=== PATIENT | female | born 1935 | race Hispanic/Latino ===

== ENCOUNTER 2022-07-07 01:47 | Inpatient (IN) | payer MEDICARE ==
[~2022-07-07] VITALS: Ht 149.9 cm; Wt 39.2 kg
[2022-07-07] MEDS ORDERED: ONDANSETRON 4MG INJ ONE (01:51)
[2022-07-07 02:19] LABS: BASOPHILS % (AUTO) 0.3 % (0.0-5.0); EOSINOPHILS % (AUTO) 0.9 % (0.0-8.0); HEMATOCRIT 37.1 % (36-48); LYMPHOCYTES % (AUTO) 16.4 % (21.0-51.0); MEAN CORPUSCULAR HEMOGLOBIN 29.2 pg (27.0-33.0); MEAN CORPUSCULAR HGB CONC 34.2 g/dL (32.0-36.0); MEAN CORPUSCULAR VOLUME 85.3 fL (79-99); MONOCYTES % (AUTO) 5.3 % (3.0-13.0); NEUTROPHILS % (AUTO) 76.5 % (40.0-77.0); PLATELET COUNT (AUTO) 275 K/uL (130-400); RED BLOOD CELL COUNT(AUTO) 4.35 MIL/uL (4.00-5.50); RED CELL DISTRIBUTION WIDTH 13.8 % (11.0-15.5); WHITE BLOOD COUNT (AUTO) 17.5 K/uL (4.8-10.8)
[2022-07-07] MEDS ORDERED: 0.9%NACL 1000ML 1,000 ML IV ONE (02:30)
[2022-07-07 02:32] LABS: APPEARANCE,URINE CLOUDY (CLEAR); BILIRUBIN,URINE NEGATIVE (NEGATIVE); COLOR,URINE YELLOW (YELLOW); GLUCOSE, URINE (UA) 30 mg/dL (NEGATIVE); KETONES,URINE NEGATIVE (NEGATIVE); LEUKOCYTE ESTERASE ,URINE NEGATIVE Leu/uL (NEGATIVE); NITRATE,URINE NEGATIVE (NEGATIVE); OCCULT BLOOD,URINE NEGATIVE (NEGATIVE); PH,URINE 5.5 (5.0-8.0); PROTEIN,URINE 30 mg/dL (NEGATIVE); UROBILINOGEN,URINE 0.2 mg/dL (0.2-1.0)
[2022-07-07 02:36] LABS: ALBUMIN 3.6 g/dL (3.5-5.0); CREATININE 1.1 mg/dL (0.5-1.5); TOTAL PROTEIN, SERUM 7.5 g/dL (6.0-8.3)
[2022-07-07 02:37] LABS: BACTERIA,URINE RARE /HPF (None Seen); MUCUS,URINE RARE LPF (None Seen); SQUAMOUS EPITHELIAL CELL,UR RARE /HPF (0-2)
[2022-07-07 02:37] LABS: POTASSIUM 2.9 mmol/L (3.5-5.1)
[2022-07-07] MEDS ORDERED: IOHEXOL 350 MG/ML 100ML INFUS..BTL IV ONE (02:52)
[2022-07-07] MEDS ORDERED: KCL 20 MEQ ERTAB PO ONE (03:00)
[2022-07-07] MEDS ORDERED: POTASSIUM CHLORIDE 10MEQ/100ML 100 ML IV SCH (03:30)
[2022-07-07] MEDS: 0.9%NACL 1000ML 1,000 ML IV SCH ×2 (10:08→20:11)
[2022-07-07] MEDS ORDERED: HYDRALAZINE 20MG/ML VIAL IV PRN (14:00)
[2022-07-07] MEDS ORDERED: POTASSIUM CHLORIDE 20MEQ/100ML 100 ML IV PRN (14:00)
[2022-07-07] MEDS ORDERED: ACETAMINOPHEN 325 MG TAB PO PRN (14:00)
[2022-07-07] MEDS ORDERED: LIDOCAINE HCL-MPF 1% 2ML VIAL IV PRN (14:00)
[2022-07-07] MEDS ORDERED: GLUCAGON 1MG KIT 1 MG ML IM PRN (14:00)
[2022-07-07] MEDS ORDERED: ONDANSETRON 4MG INJ IVP PRN (14:00)
[2022-07-07] MEDS ORDERED: DEXTROSE 50%-WATER 50 ML DISP.SYRIN IV PRN (14:00)
[2022-07-07] MEDS ORDERED: LEVOFLOXACIN 500 MG/D5W 100 ML 100 ML IV SCH (14:30)
[2022-07-07] MEDS: INSULIN HUMULIN R 100 UNIT/ML 3ML SQ SCH ×2 (16:28→20:53)
[2022-07-07] MEDS: FAMOTIDINE 20MG VIAL IV SCH (20:59)
[2022-07-07 22:00] VITALS: BP 177/84
[2022-07-07 22:01] LABS: CREATININE 0.6 mg/dL (0.5-1.5); POTASSIUM 3.6 mmol/L (3.5-5.1)
[2022-07-07 22:05] LABS: ALBUMIN 2.9 g/dL (3.5-5.0); TOTAL PROTEIN, SERUM 6.7 g/dL (6.0-8.3)
[2022-07-07] MEDS ORDERED: AMLO-258 PO (23:22)
[2022-07-07] MEDS ORDERED: PRAV10TA39 PO (23:22)
[2022-07-07] MEDS ORDERED: MEGE40TA33 PO (23:22)
[2022-07-07] MEDS ORDERED: SERT-438 PO (23:22)
[2022-07-07] MEDS ORDERED: DONE5TAB33 PO (23:22)
[2022-07-08 03:50] VITALS: BP 148/62
[2022-07-08 05:08] LABS: HEMATOCRIT 33.1 % (36-48); MEAN CORPUSCULAR HEMOGLOBIN 29.2 pg (27.0-33.0); MEAN CORPUSCULAR HGB CONC 34.4 g/dL (32.0-36.0); MEAN CORPUSCULAR VOLUME 84.7 fL (79-99); RED BLOOD CELL COUNT(AUTO) 3.91 MIL/uL (4.00-5.50); WHITE BLOOD COUNT (AUTO) 15.3 K/uL (4.8-10.8)
[2022-07-08 05:24] LABS: ALBUMIN 2.9 g/dL (3.5-5.0); CREATININE 0.6 mg/dL (0.5-1.5); POTASSIUM 3.5 mmol/L (3.5-5.1); TOTAL PROTEIN, SERUM 6.7 g/dL (6.0-8.3)
[2022-07-08 07:09] VITALS: BP 139/62
[2022-07-08] MEDS: INSULIN HUMULIN R 100 UNIT/ML 3ML SQ SCH ×4 (07:30→21:00)
[2022-07-08] MEDS: ENOXAPARIN SODIUM 30 MG/0.3 ML SQ SCH (09:19)
[2022-07-08] MEDS: 0.9%NACL 1000ML 1,000 ML IV SCH (09:34)
[2022-07-08 12:09] VITALS: BP 112/60
[2022-07-08] MEDS ORDERED: LEVOFLOXACIN 250 MG/D5W 50ML 50 ML IVPB SCH (14:00)
[2022-07-08 16:06] VITALS: BP 141/61
[2022-07-08 19:42] VITALS: BP 123/61
[2022-07-08] MEDS: FAMOTIDINE 20MG VIAL IV SCH (21:39)
[2022-07-09 00:04] VITALS: BP 119/63
[2022-07-09] MEDS: 0.9%NACL 1000ML 1,000 ML IV SCH ×2 (02:00→05:52)
[2022-07-09 03:46] VITALS: BP 141/74
[2022-07-09 05:47] LABS: HEMATOCRIT 28.3 % (36-48); MEAN CORPUSCULAR HEMOGLOBIN 29.4 pg (27.0-33.0); MEAN CORPUSCULAR HGB CONC 34.6 g/dL (32.0-36.0); RED BLOOD CELL COUNT(AUTO) 3.33 MIL/uL (4.00-5.50); RED CELL DISTRIBUTION WIDTH 14.1 % (11.0-15.5); WHITE BLOOD COUNT (AUTO) 13.5 K/uL (4.8-10.8)
[2022-07-09 06:02] LABS: CREATININE 0.5 mg/dL (0.5-1.5)
[2022-07-09 06:03] LABS: POTASSIUM 2.9 mmol/L (3.5-5.1)
[2022-07-09] MEDS: INSULIN HUMULIN R 100 UNIT/ML 3ML SQ SCH (06:43)
[2022-07-09 08:00] VITALS: BP 172/87
[2022-07-09] MEDS ORDERED: LEVO-70 PO (08:37)
[2022-07-09] MEDS: ENOXAPARIN SODIUM 30 MG/0.3 ML SQ SCH (08:51)
== END 2022-07-09 11:15 | disposition home or self-care (01) | DRG 388 ==
LOC: EDH 01:47 → EDHIP 09:54 → 3AH 20:24
PROVIDERS: ADMIT Hospitalist; ATTEND Hospitalist
DX: K56.609 Unspecified intestinal obstruction, unspecified as to partial versus complete obstruction (principal); U07.1 COVID-19; E87.1 Hypo-osmolality and hyponatremia; N39.0 Urinary tract infection, site not specified; E87.6 Hypokalemia; E11.65 Type 2 diabetes mellitus with hyperglycemia; E78.5 Hyperlipidemia, unspecified; I10 Essential (primary) hypertension
CPT/HCPCS: 36415; 71045; 74018; 74177; 80048; 80053; 81001; 82948; 84484; 85025; 85027; 87088; 87635; 87804; 93005; C9803; G0378; J1650; J1956; J2405; J3480; J3490; J7030; Q9967

== ENCOUNTER 2023-11-19 14:24 | Inpatient (IN) | payer MEDICARE ==
[~2023-11-19] VITALS: Ht 152.4 cm; Wt 41.7 kg
[~2023-11-19 14:24] MED LIST: LACT10SO9 PO; POLY17PO4 PO
[2023-11-19 15:29] LABS: BASOPHILS # (AUTO) 0.06 K/uL (0.00-0.20); BASOPHILS % (AUTO) 0.4 % (0.0-5.0); EOSINOPHILS # (AUTO) 0.04 K/uL (0.00-0.70); EOSINOPHILS % (AUTO) 0.3 % (0.0-8.0); HEMATOCRIT 40.9 % (36-48); MEAN CORPUSCULAR HEMOGLOBIN 28.8 pg (27.0-33.0); MEAN CORPUSCULAR HGB CONC 33.7 g/dL (32.0-36.0); MEAN CORPUSCULAR VOLUME 85.4 fL (79-99); MONOCYTES # (AUTO) 0.7 K/uL (0.1-1.0); MONOCYTES % (AUTO) 5.1 % (3.0-13.0); NEUTROPHILS # (AUTO) 12.2 K/uL (1.8-7.7); NEUTROPHILS % (AUTO) 86.5 % (40.0-77.0); PLATELET COUNT (AUTO) 258 K/uL (130-400); RED BLOOD CELL COUNT(AUTO) 4.79 MIL/uL (4.00-5.50); WHITE BLOOD COUNT (AUTO) 14.1 K/uL (4.8-10.8)
[2023-11-19] MEDS: ONDANSETRON 4MG INJ IVP ONE (15:30)
[2023-11-19] MEDS: LACTATED RINGERS 1000ML 1,000 ML IV ONE (15:30)
[2023-11-19 16:12] LABS: CREATININE 0.7 mg/dL (0.5-1.5); POTASSIUM 4.2 mmol/L (3.5-5.1)
[2023-11-19 16:16] LABS: BILIRUBIN,TOTAL 0.5 mg/dL (0.2-1.0); TOTAL PROTEIN, SERUM 6.8 g/dL (6.0-8.3)
[2023-11-19 16:58] LABS: APPEARANCE,URINE CLEAR (CLEAR); BILIRUBIN,URINE NEGATIVE (NEGATIVE); COLOR,URINE YELLOW (YELLOW); GLUCOSE, URINE (UA) NEGATIVE (NEGATIVE); KETONES,URINE NEGATIVE (NEGATIVE); LEUKOCYTE ESTERASE ,URINE NEGATIVE Leu/uL (NEGATIVE); NITRATE,URINE NEGATIVE (NEGATIVE); OCCULT BLOOD,URINE NEGATIVE (NEGATIVE); PROTEIN,URINE NEGATIVE (NEGATIVE); UROBILINOGEN,URINE 0.2 mg/dL (0.2-1.0)
[2023-11-19] MEDS ORDERED: IOHEXOL-350 75 ML VIAL IV ONE (17:00)
[2023-11-19 17:16] LABS: ADD UA MICROSCOPIC NO
[2023-11-19] MEDS: LEVOFLOXACIN 750 MG/D5W 150ML BAG IV ONE (18:07)
[2023-11-19] MEDS ORDERED: POTASSIUM CHLORIDE 10% ELIXIR 20 MEQ/15 ML UDCUP PO PRN (20:30)
[2023-11-19] MEDS ORDERED: POTASSIUM CHLORIDE 20MEQ/100ML 100 ML IV PRN (20:30)
[2023-11-19] MEDS ORDERED: DEXTROSE 50%-WATER 50 ML DISP.SYRIN IV PRN (20:30)
[2023-11-19] MEDS ORDERED: KCL 20 MEQ ERTAB PO PRN (20:30)
[2023-11-19] MEDS ORDERED: GLUCAGON 1MG KIT 1 MG ML IM PRN (20:30)
[2023-11-19] MEDS ORDERED: LEVOFLOXACIN 500 MG/D5W 100 ML 100 ML IV ONE (20:30)
[2023-11-19] MEDS ORDERED: ONDANSETRON 4MG INJ IV PRN (20:30)
[2023-11-19] MEDS ORDERED: MAGNESIUM 2GM PREMIX 50ML 50 ML IV PRN (20:30)
[2023-11-19] MEDS ORDERED: METRONIDAZOLE 500MG/100ML BAG 100 ML IVPB SCH (22:00)
[2023-11-19] MEDS: METRONIDAZOLE 500MG/100ML BAG 100 ML IVPB SCH (22:09)
[2023-11-19] MEDS: FAMOTIDINE 20MG VIAL IV SCH (22:09)
[2023-11-19 22:35] VITALS: BP 154/79; PULSE 98; RESP 16
[2023-11-19 22:40] VITALS: O2SAT 98
[2023-11-19] MEDS: INSULIN HUMULIN R 100 UNIT/ML 3ML SQ SCH (23:49)
[2023-11-20 04:00] VITALS: BP 159/77; PULSE 98; RESP 16
[2023-11-20] MEDS: 0.9%NACL 1000ML 1,000 ML IV SCH (04:06)
[2023-11-20 05:09] LABS: BASOPHILS # (AUTO) 0.04 K/uL (0.00-0.20); BASOPHILS % (AUTO) 0.4 % (0.0-5.0); EOSINOPHILS # (AUTO) 0.05 K/uL (0.00-0.70); EOSINOPHILS % (AUTO) 0.5 % (0.0-8.0); HEMATOCRIT 38.7 % (36-48); IMMATURE GRANULOCYTE ABSOLUTE 0.04 K/uL (0-1); LYMPHOCYTES # (AUTO) 1.1 K/uL (1.0-4.8); LYMPHOCYTES % (AUTO) 12.4 % (21.0-51.0); MEAN CORPUSCULAR HEMOGLOBIN 28.7 pg (27.0-33.0); MEAN CORPUSCULAR HGB CONC 33.3 g/dL (32.0-36.0); MEAN CORPUSCULAR VOLUME 86.2 fL (79-99); MONOCYTES # (AUTO) 0.8 K/uL (0.1-1.0); MONOCYTES % (AUTO) 8.4 % (3.0-13.0); NEUTROPHILS # (AUTO) 7.1 K/uL (1.8-7.7); NEUTROPHILS % (AUTO) 77.9 % (40.0-77.0); PLATELET COUNT (AUTO) 249 K/uL (130-400); RED BLOOD CELL COUNT(AUTO) 4.49 MIL/uL (4.00-5.50); RED CELL DISTRIBUTION WIDTH 13.6 % (11.0-15.5); WHITE BLOOD COUNT (AUTO) 9.2 K/uL (4.8-10.8)
[2023-11-20 05:31] LABS: ALBUMIN 3.1 g/dL (3.5-5.0); BILIRUBIN,TOTAL 0.8 mg/dL (0.2-1.0); CREATININE 0.7 mg/dL (0.5-1.5); MAGNESIUM 1.9 mg/dL (1.80-2.40); POTASSIUM 4.4 mmol/L (3.5-5.1); TOTAL PROTEIN, SERUM 7.3 g/dL (6.0-8.3)
[2023-11-20 08:00] VITALS: BP 153/66; PULSE 78; RESP 16; O2SAT 99
[2023-11-20 11:00] VITALS: BP 180/78; PULSE 72; RESP 16
[2023-11-20] MEDS: HYDRALAZINE 20MG/ML VIAL IV PRN (11:22)
[2023-11-20 16:00] VITALS: BP 150/74; PULSE 85; RESP 16
[2023-11-20] MEDS: LEVOFLOXACIN 250 MG/D5W 50ML 50 ML IVPB SCH (17:49)
[2023-11-20 20:00] VITALS: O2SAT 99
[2023-11-20] MEDS: INSULIN HUMULIN R 100 UNIT/ML 3ML SQ SCH (20:52)
[2023-11-20 23:55] VITALS: BP 160/72; PULSE 69; RESP 17
[2023-11-21 04:00] VITALS: BP 180/71; PULSE 69; RESP 17
[2023-11-21 09:00] VITALS: O2SAT 99
[2023-11-21 12:09] VITALS: BP 150/76; PULSE 81; RESP 19
[2023-11-21] MEDS: LACTULOSE 20 GM/30 ML UDCUP PO ONE (13:26)
[2023-11-21 17:45] VITALS: BP 145/77; PULSE 94; RESP 19
[2023-11-21] MEDS ORDERED: LEVOFLOXACIN 750 MG/D5W 150ML BAG IV SCH (18:00)
== END 2023-11-21 19:00 | disposition home or self-care (01) | DRG 389 ==
LOC: EDH 14:24 → EDHIP 20:16 → 3DH 22:08
PROVIDERS: ADMIT Family Medicine; ATTEND Family Medicine
DX: K56.699 Other intestinal obstruction unspecified as to partial versus complete obstruction (principal); E44.0 Moderate protein-calorie malnutrition; Z68.1 Body mass index [BMI] 19.9 or less, adult; E11.9 Type 2 diabetes mellitus without complications; E86.0 Dehydration; K42.9 Umbilical hernia without obstruction or gangrene; K57.30 Diverticulosis of large intestine without perforation or abscess without bleeding; K80.20 Calculus of gallbladder without cholecystitis without obstruction; D72.829 Elevated white blood cell count, unspecified; E78.5 Hyperlipidemia, unspecified; I10 Essential (primary) hypertension; Z82.49 Family history of ischemic heart disease and other diseases of the circulatory system; Z88.0 Allergy status to penicillin; Z83.3 Family history of diabetes mellitus; Z79.84 Long term (current) use of oral hypoglycemic drugs
CPT/HCPCS: 36415; 74177; 80053; 81003; 82948; 83605; 83690; 83735; 84145; 85025; 87040; G0378; J0360; J1956; J2405; J3490; J7120; Q9967

== ENCOUNTER 2025-03-28 22:21 | Emergency (ER) | payer MEDICARE, MEDICAID ==
[~2025-03-28] VITALS: Ht 142.2 cm; Wt 35.8 kg
[~2025-03-28 22:21] MED LIST changes: +AMLO5TAB4 PO; -LACT10SO9 PO; +LOSA-418 PO; +METF-526 PO; +PRAV10TA37 PO
--- NOTE | 2025-03-28 23:24 | ERN ---
ED Note History of Present Illness Stated Complaint: FALL Chief Complaint: Mechanical Fall Time Seen by MD: 21:32 Dictation: This is an 89-year-old female who was brought into the emergency room for evaluation of a fall. Apparently patient was attempting to use the restroom and at 9:45 p.m. he was going to sit on the toilet but slid off from the side hitting the right side of the head and wrist. No loss of consciousness and per son she did not actually fall on the floor. Shower curtain cushioned her head. Patient is not on any blood thinners. No history of any blurred vision diplopia facial asymmetry motor weakness or seizure activity. Temperature 98.7 pulse 83 respirations 16 blood pressure 215/87 with a pulse oximetry of 97% on room air Chronic medical problems include diabetes mellitus hypertension and hypercholesterolemia. Allergies: Coded Allergies: Penicillins (Verified Allergy, 12/13/12) Home Meds Active Scripts Losartan Potassium (Cozaar) 50 Mg Tablet, 50 MG PO BID, #60 TAB 0 Refills Prov:DONNY JOHNSON MD 01/15/25 Amlodipine Besylate (Norvasc 5Mg Tab) 5 Mg Tablet, 10 MG PO DAILY PRN for IF SBP GREATER THAN 170, #60 TAB Prov:ALEX BOLIVAR ACID CONDITIONING WORKER 01/07/25 Reported Medications Polyethylene Glycol 3350 (Miralax) 17 Gram Powd.pack, 1 PACKET PO DAILY for constipation for 2 Days, #2 PACKET 0 Refills dissolve in water 01/06/25 Pravastatin Sodium (Pravastatin Sodium) 10 Mg Tablet, 1 TAB PO HS for 30 Days, #30 TAB 0 Refills 01/06/25 Metformin HCl (Metformin HCl ER) 500 Mg Tab.er.24, 1 TAB PO DAILY PRN for OTHER [SEE ORDER COMMENTS] for 30 Days, #30 TAB 0 Refills BLOOD GLUCOSE 130 01/06/25 Past Medical History Past Medical History: Diabetes-Type II, High Cholesterol, Hypertension, Other Additional Past Medical Hx: POOR HISTORIAN/CONFUSED Surgical History: Cholecystectomy, Unknown Family History: Negative Social History: Negative History: Not Applicable RN Note Reviewed/Agreed w/PFSH: Yes Review of System Dictation Constitutional: Negative for fever,chills, and weight loss positive for fall with a injury to the right side of the head Eyes: Negative for injury, pain,redness, and discharge ENT: Negative for injury,pain or swelling Cardiovascular: Negative for chest pain, palpitations, and edema Respiratory: Negative for shortness of breath, cough, and wheezing, Abdomen/GI: Negative for abdominal pain, nausea, vomiting, diarrhea, and constipation Back: Negative for injury and pain : Negative for injury, bleeding and discharge MS/Extremity: Negative for injury and deformity Skin: Negative for rash, and discoloration tear on the right wrist and pain Neuro: Negative for headache, weakness, numbness, tingling, and seizure Psych: Negative for suicide ideation, homicidal ideation, and hallucinations Initial Vital Sign VS Vital Signs Date Time Temp Pulse Resp B/P (MAP) Pulse Ox O2 Delivery O2 Flow Rate FiO2 03/28/25 22:22 98.8 83 16 215/87 97 03/28/25 23:09 Room Air* 0 21 Physical Exam Dictation General: awake, alert, NAD frail elderly female who is emaciated with severe temporal wasting Head/Face: Normocephalic, atraumatic, constant chewing movements Eyes: PERRL, EOMI, vision at baseline ENT: oral cavity clear, TMs clear, no signs of infection Neck: Trachea midline, supple, no nuchal rigidity Cardiovascular: RRR, normal S1/S2, No MRGs, no JVD Respiratory: CTAB, no respiratory distress, No rales or wheezes Abdomen: Soft, non-tender, non-distended, normal bowel sounds, no guarding or rebound. Skin: Warm, dry, normal turgor, no rash small skin tear on the right wrist MS/Extremity: Pulses equal, no cyanosis, neurovascular intact, FROM Neuro: COAx4, GCS 15, strength 5/5, CN 2-12 intact, normal cerebellar exam, Psych: Normal behavior, mood, and affect normal Extremities-trace edema without any palpable cords, Homans sign is negative Results (Laboratory/Radiology) Laboratory/Radiology Laboratory Tests Test 03/28/25 23:40 White Blood Count 7.7 K/uL (4.8-10.8) Red Blood Count 3.71 MIL/uL (4.00-5.50) L Hemoglobin 11.1 g/dL (12.0-16.0) L Hematocrit 33.3 % (36-48) L Mean Corpuscular Volume 89.8 fL (79-99) Mean Corpuscular Hemoglobin 29.9 pg (27.0-33.0) Mean Corpuscular Hemoglobin Concent 33.3 g/dL (32.0-36.0) Red Cell Distribution Width 14.8 % (11.0-15.5) Platelet Count 285 K/uL (130-400) Mean Platelet Volume 11.2 fL (7.5-10.5) H Immature Granulocyte % (Auto) 0.5 % (0-1) Neutrophils (%) (Auto) 61.8 % (40.0-77.0) Lymphocytes (%) (Auto) 27.1 % (21.0-51.0) Monocytes (%) (Auto) 8.7 % (3.0-13.0) Eosinophils (%) (Auto) 1.2 % (0.0-8.0) Basophils (%) (Auto) 0.7 % (0.0-5.0) Neutrophils # (Auto) 4.7 K/uL (1.8-7.7) Lymphocytes # (Auto) 2.1 K/uL (1.0-4.8) Monocytes # (Auto) 0.7 K/uL (0.1-1.0) Eosinophils # (Auto) 0.09 K/uL (0.00-0.70) Basophils # (Auto) 0.05 K/uL (0.00-0.20) Absolute Immature Granulocyte (auto 0.04 K/uL (0-1) Nucleated Red Blood Cells 0.0 % (0.0-0.19) Sodium Level 139 mmol/L (136-145) Potassium Level 4.4 mmol/L (3.5-5.1) Chloride Level 103 mmol/L (101-111) Carbon Dioxide Level 31 mmol/L (21-32) Blood Urea Nitrogen 24 mg/dL (7-18) H Creatinine 0.6 mg/dL (0.5-1.0) Glomerular Filtration Rate Calc 87 mL/min (>90) Random Glucose 105 mg/dL (70-105) Total Calcium 9.0 mg/dL (8.5-10.1) Total Creatine Kinase 32 U/L (21-232) # Troponin I High Sensitivity 27.8 ng/L (4-50) Labs Reviewed?: Yes ED Course ED Course Orders Procedure Category Date Status Time Cardiac Panel LAB 6/12/25 Complete 23:19 Cbc With Differential LAB 03/28/25 Complete 23:19 Basic Metabolic Panel LAB 03/28/25 Complete 23:19 Urinalysis Profile LAB 03/28/25 Logged 23:19 Ct Head/Brain W/O CT 03/28/25 Taken Contrast 23:19 Wrist 2vws Rt RAD 03/28/25 Taken 23:19 Vital Signs Date Time Temp Pulse Resp B/P (MAP) Pulse Ox O2 Delivery O2 Flow Rate FiO2 03/28/25 23:09 98.8 76 18 173/69 99 Room Air* 0 21 03/28/25 22:22 98.8 83 16 215/87 97 We will perform diagnostic labs, advanced imaging and administer medications according to the patient's complaint. Once the results are available, will review and personally interpreted the labs to rule out any acute life- threatening emergency the trach require immediate intervention and treatment. I will then re-evaluate the patient after treatment and diagnostic exams have return to determine whether the patient requires any further testing, can safely be discharged home or need further admission to hospital for additional treatment and evaluation. Labs reviewed CBC showed a hemoglobin of 11.1 BNP 7 is significant for a BUN and creatinine of 24 and 0.6 sugar is normal 12:30 a.m.-wrist x-ray on the right side did not show any obvious fractures. Calcified arteries noted 12:[address] scan of the head was done results pending 1:[address] scan of the head results are still pending 2:[address] scan head reading mild soft tissue swelling overlies the lateral right frontotemporal bone no evidence of any calvarial fracture noted. No acute intracranial hemorrhage or intracranial findings except for cerebral atrophy I updated the patient's daughter and the patient on all the test results and the CT scan findings x-ray of the wrist findings and they are very relieved and would like to be discharged to home so she can sleep in her own bed Medical Decision Making MDM MDM: Differential diagnosis: Subdural hematoma, depressed skull fracture, contusion, concussion Rationale: Tests considered and ordered secondary to shared decision making include: Previous outside records reviewed: Old ER visits. Risk of complication and/or morbidity or mortality of patient management: None Medications-Per medication reconciliation Need for hospitalization: Patient does not meet criteria for hospitalization. Need for emergency major/minor surgery: No There are no social concerns with this patient. Prescription drug management Prescriptions will include symptomatic care Patient's prior external medical records from other ER visits were reviewed by me as indicated. Prior testing and results from previous visits were reviewed. Prior tests were taken into account with medical decision making and resource utilization, independent historian/historians were used to obtain complete medical history. I independently interpreted the test that were performed, results were reviewed by me and considered findings on radiology if ordered. Medical management and examination interpretation discussions were had by me wit h other qualified healthcare professionals as indicated for the patient's care. Problem List Problem List: (1) Accidental fall from commode or toilet (2) Fall from toilet with subsequent striking against object (3) Closed head injury (4) Injury of wrist, right (5) Hematoma of right parietal scalp DX & DISP Disposition: Discharge Departure Impression: Primary Impression: Accidental fall from commode or toilet Additional Impressions: Fall from toilet with subsequent striking against object, Closed head injury, Injury of wrist, right, Hematoma of right parietal scalp Condition: Stable Additional Instructions: Patient and the caregiver have been informed of all the diagnostic tests and the imaging conducted during the today's visit to the emergency room and has verbalized understanding of the results I have personally reviewed and interpreted all diagnostic exams performed here in the ER today as well as the vital signs documented by the nursing staff. The patient is now being discharged to home and should follow up with the primary care physician or the specialist as directed by the ER staff. Follow-up with primary care provider in 1 to 2 days. Take medications as directed here in the emergency room. Okay to continue home medications unless otherwise discussed during your visit in the emergency room today. Return to your nearest emergency room if symptoms worsen or if there is no improvement. Call 911 if you need immediate assistance. Take Tylenol or Motrin [id number] as needed and if no contraindications are present. Increase oral hydration. A wound culture or urine culture was ordered here in the emergency room department please follow-up with primary care provider and advise them to get repeat ports from our facility. If you had any Dash wrap/splints that were applied here, please do not remove them until you see your primary care or specialty. Referrals: LISA LASSITER DO (PCP) BRAULIO GILBERT MD Mar 28, 2025 23:24
[2025-03-28 23:50] LABS: BASOPHILS # (AUTO) 0.05 K/uL (0.00-0.20); BASOPHILS % (AUTO) 0.7 % (0.0-5.0); EOSINOPHILS # (AUTO) 0.09 K/uL (0.00-0.70); EOSINOPHILS % (AUTO) 1.2 % (0.0-8.0); HEMATOCRIT 33.3 % (36-48); IMMATURE GRANULOCYTE ABSOLUTE 0.04 K/uL (0-1); LYMPHOCYTES # (AUTO) 2.1 K/uL (1.0-4.8); LYMPHOCYTES % (AUTO) 27.1 % (21.0-51.0); MEAN CORPUSCULAR HEMOGLOBIN 29.9 pg (27.0-33.0); MEAN CORPUSCULAR HGB CONC 33.3 g/dL (32.0-36.0); MEAN CORPUSCULAR VOLUME 89.8 fL (79-99); MONOCYTES # (AUTO) 0.7 K/uL (0.1-1.0); MONOCYTES % (AUTO) 8.7 % (3.0-13.0); NEUTROPHILS # (AUTO) 4.7 K/uL (1.8-7.7); NEUTROPHILS % (AUTO) 61.8 % (40.0-77.0); PLATELET COUNT (AUTO) 285 K/uL (130-400); RED BLOOD CELL COUNT(AUTO) 3.71 MIL/uL (4.00-5.50); RED CELL DISTRIBUTION WIDTH 14.8 % (11.0-15.5); WHITE BLOOD COUNT (AUTO) 7.7 K/uL (4.8-10.8)
[2025-03-29 00:09] LABS: CREATININE 0.6 mg/dL (0.5-1.0); POTASSIUM 4.4 mmol/L (3.5-5.1)
[2025-03-29 02:37] VITALS: BP 145/65; PULSE 72; RESP 20; TEMP 98.7; O2SAT 98
--- NOTE | 2025-03-29 08:48 | HMCIMG ---
Exam Type: CT HEAD/BRAIN W/O CONTRAST Clinical Information: Fall and closed head injury to right side Comparison: None CT Dose Index (CTDI): 57.33 mGy Dose Length Product (DLP): 956.79 total mGy-cm Findings: The examination shows atrophy. There is low attenuation throughout the periventricular white matter locations, consistent with chronic small vessel ischemic changes. No acute intra- or extra-axial fluid collections are seen. There is no evidence of acute or chronic hemorrhage. There is no mass effect or shift of midline structures. There are no areas to suggest acute infarct. The skull windows show no significant abnormalities. IMPRESSION: 1. ATROPHY AND CHRONIC SMALL VESSEL ISCHEMIC CHANGES. This study was performed using dose reduction techniques to include automated exposure control and/or adjustment of the mA and/or kV according to patient size.
--- NOTE | 2025-03-29 09:12 | HMCIMG ---
Wrist 3 views- AP, lateral, oblique right History: right wrist injury with fall Comparison: none Findings: No fractures or dislocations are seen. The radiocarpal space as well as the carpal rows are preserved. There is adequate carpal alignment on the lateral view. There are no joint effusions. There are no blastic or lytic lesions. The soft tissues are preserved. There is osteopenia. 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 There are vascular calcifications. Impression: No acute pathology.
== END 2025-03-29 02:49 | disposition home or self-care (01) ==
LOC: EDH 22:21
DX: S00.03XA Contusion of scalp, initial encounter (principal); S69.91XA Unspecified injury of right wrist, hand and finger(s), initial encounter; E11.9 Type 2 diabetes mellitus without complications; E78.00 Pure hypercholesterolemia, unspecified; I10 Essential (primary) hypertension; Z79.899 Other long term (current) drug therapy; Z88.0 Allergy status to penicillin; Z90.49 Acquired absence of other specified parts of digestive tract; W18.11XA Fall from or off toilet without subsequent striking against object, initial encounter; Y93.89 Activity, other specified; Y92.89 Other specified places as the place of occurrence of the external cause; Y99.8 Other external cause status
CPT/HCPCS: 36415; 70450; 73100; 80048; 82550; 84484; 85025; 99284

== ENCOUNTER 2025-06-09 20:48 | Emergency (ER) | payer MEDICARE, MEDICAID ==
[~2025-06-09] VITALS: Ht 144.8 cm; Wt 29.9 kg
[2025-06-09 21:43] LABS: IMMATURE GRANULOCYTE ABSOLUTE 0.05 K/uL (0-1); NUCLEATED RED BLOOD CELLS 0.0 % (0.0-0.19); PLATELET COUNT (AUTO) 293 K/uL (130-400); RED BLOOD CELL COUNT(AUTO) 4.22 MIL/uL (4.00-5.50); RED CELL DISTRIBUTION WIDTH 15.4 % (11.0-15.5); WHITE BLOOD COUNT (AUTO) 9.5 K/uL (4.8-10.8)
[2025-06-09 21:53] LABS: CREATININE 0.7 mg/dL (0.5-1.0); GLOMERULAR FILTR. RATE CALC 84.0 mL/min (>90); GLUCOSE,RANDOM 153.0 mg/dL (70-105); SODIUM SERUM 133.0 mmol/L (136-145); UREA NITROGEN, BLOOD 17.0 mg/dL (7-18)
[2025-06-09 21:57] LABS: ASPARTATE AMINOTRANSFERASE 18.0 U/L (10-37); TOTAL PROTEIN, SERUM 7.5 g/dL (6.0-8.3)
--- NOTE | 2025-06-09 22:30 | NUR ---
ATTEMPTED TO COLLECT URINE SAMPLE, SAMPLE CONTAMINATED BY STOOL. UNABLE TO COLLECT SAMPLE AT THIS TIME
--- NOTE | 2025-06-09 23:56 | NUR ---
ATTEMPTED TO COLLECT URINE SAMPLE, PT UNABLE TO URINATE AT THIS TIME
--- NOTE | 2025-06-10 00:46 | ERN ---
ED Note History of Present Illness Stated Complaint: AMS, INTERMITTENT, ABD PAIN Chief Complaint: Multiple Complaints Time Seen by MD: 21:14 Time Seen by Midlevel: 21:15 Dictation: 89-year-old female presents to the emergency department with the daughter for report of having a history of constipation but concerned that today she was having some intermittent colicky abdominal pain. There is no report of any fever, chills, nausea, vomiting or diarrhea associated with this. The daughter states that she does have a history of constipation for which her last bowel movement was 2 days ago. The patient is able to communicate that she is currently not experiencing in his severe abdominal pain. The pain is reported more as a colicky type of sensation. Upon initial evaluation, the patient presents in no acute distress. Allergies: Coded Allergies: Penicillins (Verified Allergy, 12/13/12) Emergency Care POLE SHAVER: None Home Meds Active Scripts Losartan Potassium (Cozaar) 50 Mg Tablet, 50 MG PO BID, #60 TAB 0 Refills Prov:DONNY JOHNSON MD 01/15/25 Amlodipine Besylate (Norvasc 5Mg Tab) 5 Mg Tablet, 10 MG PO DAILY PRN for IF SBP GREATER THAN 170, #60 TAB Prov:ALEX BOLIVAR SHIFT SUPERVISOR [employer]M [employer]ESSING 01/07/25 Reported Medications Polyethylene Glycol 3350 (Miralax) 17 Gram Powd.pack, 1 PACKET PO DAILY for constipation for 2 Days, #2 PACKET 0 Refills dissolve in water 01/06/25 Pravastatin Sodium (Pravastatin Sodium) 10 Mg Tablet, 1 TAB PO HS for 30 Days, #30 TAB 0 Refills 01/06/25 Metformin HCl (Metformin HCl ER) 500 Mg Tab.er.24, 1 TAB PO DAILY PRN for OTHER [SEE ORDER COMMENTS] for 30 Days, #30 TAB 0 Refills BLOOD GLUCOSE 130 01/06/25 Past Medical History Past Medical History: Diabetes-Type II, High Cholesterol, Hypertension, Other Additional Past Medical Hx: SBO , POOR HISTORIAN/CONFUSED Surgical History: Cholecystectomy, Unknown Family History: Negative Social History: Negative History: Not Applicable Review of System Dictation Abdomen/GI: Abdominal cramping/pain Initial Vital Sign VS Vital Signs Date Time Temp Pulse Resp B/P (MAP) Pulse Ox O2 Delivery O2 Flow Rate FiO2 06/09/25 20:50 98.2 68 18 176/65 97 Room Air 8/24/25 21:09 0 21 Physical Exam Dictation General: awake, alert, NAD Head/Face: Normocephalic, atraumatic Eyes: PERRL, EOMI ENT: Oral mucosa moist Neck: Trachea midline, supple Cardiovascular: RRR, no edema Respiratory: Symmetrical, non-labored Abdomen: Soft, non-tender, non-distended, no guarding. Skin: Warm, dry, good turgor, no rash MS/Extremity: Pulses equal, no cyanosis, neurovascular intact, FROM Neuro: COAx4, GCS 15, steady gait, Psych: Normal behavior, mood, and affect normal Results (Laboratory/Radiology) Laboratory/Radiology Laboratory Tests Test 06/09/25 21:39 White Blood Count 9.5 K/uL (4.8-10.8) Red Blood Count 4.22 MIL/uL (4.00-5.50) Hemoglobin 12.4 g/dL (12.0-16.0) Hematocrit 37.6 % (36-48) Mean Corpuscular Volume 89.1 fL (79-99) Mean Corpuscular Hemoglobin 29.4 pg (27.0-33.0) Mean Corpuscular Hemoglobin Concent 33.0 g/dL (32.0-36.0) Red Cell Distribution Width 15.4 % (11.0-15.5) Platelet Count 293 K/uL (130-400) Mean Platelet Volume 11.4 fL (7.5-10.5) H Immature Granulocyte % (Auto) 0.5 % (0-1) Neutrophils (%) (Auto) 76.8 % (40.0-77.0) Lymphocytes (%) (Auto) 16.4 % (21.0-51.0) L Monocytes (%) (Auto) 5.4 % (3.0-13.0) Eosinophils (%) (Auto) 0.4 % (0.0-8.0) Basophils (%) (Auto) 0.5 % (0.0-5.0) Neutrophils # (Auto) 7.3 K/uL (1.8-7.7) Lymphocytes # (Auto) 1.6 K/uL (1.0-4.8) Monocytes # (Auto) 0.5 K/uL (0.1-1.0) Eosinophils # (Auto) 0.04 K/uL (0.00-0.70) Basophils # (Auto) 0.05 K/uL (0.00-0.20) Absolute Immature Granulocyte (auto 0.05 K/uL (0-1) Nucleated Red Blood Cells 0.0 % (0.0-0.19) Sodium Level 133 mmol/L (136-145) L Potassium Level 4.7 mmol/L (3.5-5.1) Chloride Level 95 mmol/L (101-111) L Carbon Dioxide Level 28 mmol/L (21-32) Blood Urea Nitrogen 17 mg/dL (7-18) Creatinine 0.7 mg/dL (0.5-1.0) Glomerular Filtration Rate Calc 84 mL/min (>90) Random Glucose 153 mg/dL (70-105) H Total Calcium 9.1 mg/dL (8.5-10.1) Total Bilirubin 0.4 mg/dL (0.2-1.0) Aspartate Amino Transf (AST/SGOT) 18 U/L (10-37) Alanine Aminotransferase (ALT/SGPT) 12 U/L (12-78) Alkaline Phosphatase 75 U/L (50-136) Total Protein 7.5 g/dL (6.0-8.3) Albumin 3.2 g/dL (3.5-5.0) L Lipase 85 U/L (16-77) H Labs Reviewed?: Yes X-RAY Comment: Abdominal x-ray one view with a nonspecific gas pattern as interpreted by me. ED Course ED Course Orders Procedure Category Date Status Time Cbc With Differential LAB 06/09/25 Complete 21:33 Comprehensive LAB 06/09/25 Complete Metabolic Panel 21:33 Urinalysis Profile LAB 06/09/25 Logged 21:33 Lipase LAB 06/09/25 Complete 21:33 Abd 1vw RAD 06/09/25 Taken 23:55 Vital Signs Date Time Temp Pulse Resp B/P (MAP) Pulse Ox O2 Delivery O2 Flow Rate FiO2 06/09/25 22:58 99.0 65 17 156/56 100 Room Air* 0 06/09/25 21:50 99.0 63 18 155/53 100 Room Air* 0 06/09/25 21:09 99.0 55 17 170/55 100 Room Air* 0 21 8/24/25 20:50 98.2 68 18 176/65 97 Room Air Medical Decision Making MDM MDM: Differential diagnosis: Abdominal pain, constipation, abdominal cramping. Rationale: Tests considered and ordered secondary to shared decision making include: Previous outside records reviewed: Old ER visits. Risk of complication and/or morbidity or mortality of patient management: None Medications-Per medication reconciliation Need for hospitalization: Patient does not meet criteria for hospitalization. Need for emergency major/minor surgery: No There are no social concerns with this patient. Prescription drug management Prescriptions will include symptomatic care Patient's prior external medical records from other ER visits were reviewed by me as indicated. Prior testing and results from previous visits were reviewed. Prior tests were taken into account with medical decision making and resource utilization, independent historian/historians were used to obtain complete medical history. I independently interpreted the test that were performed, results were reviewed by me and considered findings on radiology if ordered. Medical management and examination interpretation discussions were had by me with other qualified healthcare professionals as indicated for the patient's care. DX & DISP Disposition: Discharge Departure Impression: Primary Impression: Abdominal cramping Additional Impression: Constipation Condition: Stable Referrals: LISA LASSITER DO (PCP) Time of Disposition: 00:45 ALEXIS VALIENTE Jun 10, 2025 00:46
[2025-06-10 00:50] VITALS: BP 157/65; PULSE 77; RESP 18; TEMP 98.7; O2SAT 98
--- NOTE | 2025-06-10 01:30 | HMCIMG ---
EXAM: CR Abdomen, 1 view. CLINICAL HISTORY: Constipation. COMPARISON: Radiograph of the abdomen dated 01/11/2025. FINDINGS: There are dilated small bowel loops measuring up to 4.1 cm in diameter, concerning for small bowel obstruction or ileus. No free air evident. Atherosclerotic vascular calcifications. No aggressive appearing osseous lesion. Osteopenia. Degenerative osseous changes. IMPRESSION: There are dilated small bowel loops measuring up to 4.1 cm in diameter, concerning for small bowel obstruction or ileus. Recommend barium follow-through for further evaluation. Similar findings on the prior radiograph dated 01/11/2025. /[place]
== END 2025-06-10 01:04 | disposition home or self-care (01) ==
LOC: EDH 20:48
DX: K59.00 Constipation, unspecified (principal); E11.9 Type 2 diabetes mellitus without complications; E78.00 Pure hypercholesterolemia, unspecified; I10 Essential (primary) hypertension; Z88.0 Allergy status to penicillin; Z79.899 Other long term (current) drug therapy; Z79.84 Long term (current) use of oral hypoglycemic drugs; Z90.49 Acquired absence of other specified parts of digestive tract
CPT/HCPCS: 36415; 74018; 80053; 83690; 85025; 99285